=== PATIENT | male | born 1995 | race Caucasian/White ===

== ENCOUNTER 2016-03-27 03:33 | Emergency (ER) | payer OTHER ==
[2016-03-27] MEDS ORDERED: ALU/MAG/SIM 30 ML UDC ONE (06:08)
[2016-03-27] MEDS ORDERED: LIDOCAINE 2% VISC 15 ML UDC ONE (06:08)
== END 2016-03-27 07:18 | disposition home or self-care (01) ==
LOC: ER 03:33
CPT/HCPCS: 36415; 71010; 80053; 80307; 81003; 82553; 84484; 85025; 86677; 93005